=== PATIENT | female | born 1970 | race Caucasian/White ===

== ENCOUNTER → 2020-09-15 | Outpatient (CLI) | payer MEDICARE, OTHER ==
[~2020-09-15] MED LIST: ALLERGY RELIEF10 M1 PO; BANOPHEN25 MG PO; BUSPAR 10MG10 MG PO; CALMOSEPTINE OI71 GM TP; CLONIDINE HCL0.3 MG PO; COREG 25MG TAB25 MG PO; CYCLOBENZAPRINE10 MG PO; DILTIAZEM 24HR240 M1 PO; ELAVIL 50 MG TA50 MG PO; ELIQUIS5 MG PO; HYDROCODON-ACE1 EAC6 PO; LISINOPRIL20 MG PO; MULTAQ 400 MG400 MG PO; NYAMYC60 GM TP; PROTONIX 40 MG40 M1 PO; TAGAMET 400 MG400 MG PO; TIZANIDINE HCL4 MG PO; TOPAMAX 100 MG100 MG PO; VENTOLIN HFA 66.7 GM INH; VITAMIN D21250 MCG PO
== END ==
LOC: ECHO 13:00
DX: I48.91 Unspecified atrial fibrillation (principal); I10 Essential (primary) hypertension; I08.3 Combined rheumatic disorders of mitral, aortic and tricuspid valves; I27.20 Pulmonary hypertension, unspecified
CPT/HCPCS: ECHO; 93306

== ENCOUNTER → 2020-09-21 | Outpatient (CLI) | payer MEDICARE, OTHER ==
[2020-09-21 08:15] LABS: BUN/CREATININE RATIO 14 (0-10)
[2020-09-21 08:25] LABS: HEMOGLOBIN 14.4 gm/dl (12.3-15.3); RED BLOOD COUNT 4.98 M/UL (4.00-5.10); WHITE BLOOD COUNT 6.8 K/UL (4.5-11.0)
== END ==
LOC: CATH 07:11
PROVIDERS: Internal Medicine Cardiovascular Disease
DX: I48.91 Unspecified atrial fibrillation (principal); I10 Essential (primary) hypertension; G47.33 Obstructive sleep apnea (adult) (pediatric); Z20.822 Contact with and (suspected) exposure to COVID-19
CPT/HCPCS: 36415; 80048; 85027; 93005; J1200; J1742; J2250; J2310; J3010